=== PATIENT | female | born 1995 | race African-American/Black ===

== ENCOUNTER 2018-06-02 10:21 | Emergency (ER) | payer OTHER | END 2018-06-02 11:21 | disposition home or self-care (01) | LOC: M ED 10:21 | DX: S90.111A Contusion of right great toe without damage to nail, initial encounter (principal); W22.8XXA Striking against or struck by other objects, initial encounter; Y92.59 Other trade areas as the place of occurrence of the external cause; Y99.0 Civilian activity done for income or pay; Z91.013 Allergy to seafood | CPT/HCPCS: 73660 ==

== ENCOUNTER 2018-10-17 05:56 | Emergency (ER) | payer OTHER ==
[~2018-10-17] VITALS: Ht 167.6 cm; Wt 70.9 kg
[2018-10-17] MEDS ORDERED: ACET-683 PO (06:05)
[2018-10-17 08:13] VITALS: BP 118/73
== END 2018-10-17 08:20 | disposition home or self-care (01) ==
LOC: M ED 05:56
DX: G43.909 Migraine, unspecified, not intractable, without status migrainosus (principal); R10.9 Unspecified abdominal pain; Z91.013 Allergy to seafood

== ENCOUNTER 2018-12-15 16:24 | Emergency (ER) | payer OTHER ==
[~2018-12-15] VITALS: Ht 167.6 cm; Wt 75.9 kg
[~2018-12-15 16:24] MED LIST: ACET-683 PO
[2018-12-15] MEDS ORDERED: NS 1,000 ML IV ONE (18:15)
[2018-12-15] MEDS ORDERED: METOCLOPRAMIDE INJ 10MG/2ML VIAL (J2765) IV ONE (18:15)
[2018-12-15 19:05] LABS: BASO # 0.1 10^3/uL (0.0-0.2); BASO % 0.9 % (0.0-1.0); EOS # 0.1 10^3/uL (0.0-0.50); EOS % 1.2 % (0.0-3.0); HEMATOCRIT 38.9 % (36.0-47.0); HEMOGLOBIN 13.1 g/dl (12.0-15.5); LYMPH % 36.6 % (24.0-44.0); MEAN CORPUSCULAR HGB CONC 33.7 g/dl (32.0-36.5); MEAN CORPUSCULAR VOLUME 89.2 fl (80.0-96.0); MONO # 0.6 10^3/uL (0.0-0.8); MONO % 7.4 % (0.0-5.0); NEUTROPHILS # 4.4 10^3/uL (1.8-7.7); NEUTROPHILS % 53.8 % (36.0-66.0); PLATELET COUNT, AUTOMATED 276 10^3/uL (150-450); RED BLOOD COUNT 4.36 10^6/uL (4.00-5.40); WHITE BLOOD COUNT 8.2 10^3/uL (4.0-10.0)
[2018-12-15 19:35] LABS: ALBUMIN 4.2 GM/DL (3.2-5.2); ALT/SGPT 18 U/L (12-78); AMYLASE 57 U/L (25-115); BILIRUBIN,TOTAL 0.6 MG/DL (0.2-1.0); BLOOD UREA NITROGEN 6 MG/DL (7-18); CALCIUM LEVEL 9.1 MG/DL (8.5-10.1); CARBON DIOXIDE LEVEL 26 MEQ/L (21-32); CHLORIDE LEVEL 104 MEQ/L (98-107); CREATININE FOR GFR 0.79 MG/DL (0.55-1.30); GLOMERULAR FILTRATION RATE > 60.0 (>60); GLUCOSE, FASTING 80 MG/DL (70-100); HCG, SERUM QUANTITATIVE < 1.0 MIU/ML; LIPASE 101 U/L (73-393); POTASSIUM SERUM 4.1 MEQ/L (3.5-5.1); SODIUM LEVEL 138 MEQ/L (136-145); TOTAL PROTEIN 8.4 GM/DL (6.4-8.2)
[2018-12-15] MEDS ORDERED: ONDA4TAB6 PO (19:50)
[2018-12-15] MEDS ORDERED: MACR100C43 PO (19:50)
[2018-12-15] MEDS ORDERED: NITROFURANTOIN (MACROBID) 100 MG CAP PO ONE (20:00)
[2018-12-15 20:10] VITALS: BP 129/72
== END 2018-12-15 20:11 | disposition home or self-care (01) ==
LOC: M ED 16:24
DX: N39.0 Urinary tract infection, site not specified (principal); A08.4 Viral intestinal infection, unspecified; R51 Headache; Z91.018 Allergy to other foods
CPT/HCPCS: 80053; 81001; 81025; 82150; 83690; 84702; 85025; 87086; 99284; J2765

== ENCOUNTER → 2019-01-28 | Outpatient (REF) | payer OTHER ==
[~2019-01-28] MED LIST changes: +MACR100C43 PO; +ONDA4TAB6 PO
== END ==
LOC: M SFHCLERA 15:57
PROVIDERS: ATTEND Nurse Practitioner Family
DX: N92.6 Irregular menstruation, unspecified (principal)

== ENCOUNTER → 2019-01-28 | Outpatient (CLI) | payer OTHER ==
--- NOTE | 2019-01-28 16:12 | REP ---
KUB: Two views. History: Left lower quadrant abdomen pain. Findings: Bowel gas pattern is normal. Psoas margins and flank stripes are intact. No mass organomegaly is seen. Impression: Negative abdominal film. Electronically Signed by Isrrael Maradiaga MD 01/28/2019 04:04 P
== END ==
LOC: M LRY 15:41
PROVIDERS: ATTEND Nurse Practitioner Family
DX: R10.32 Left lower quadrant pain (principal)
CPT/HCPCS: 74018; 81002; 81025; 87086; G0463

== ENCOUNTER 2019-03-25 21:52 | Emergency (ER) | payer OTHER ==
[~2019-03-25] VITALS: Ht 165.1 cm; Wt 77.3 kg
[2019-03-25] MEDS ORDERED: PREN1TAB14 (21:59)
[2019-03-25 22:45] LABS: URINE PREG TEST POSITIVE (NEGATIVE)
[2019-03-25] MEDS ORDERED: METOCLOPRAMIDE INJ 10MG/2ML VIAL (J2765) IV ONE (23:30)
[2019-03-25] MEDS ORDERED: NS 1,000 ML IV ONE (23:30)
[2019-03-25 23:46] LABS: BASO % 0.3 % (0.0-1.0); EOS # 0.1 10^3/uL (0.0-0.50); EOS % 1.3 % (0.0-3.0); HEMATOCRIT 34.3 % (36.0-47.0); HEMOGLOBIN 11.5 g/dl (12.0-15.5); LYMPH # 2.5 10^3/uL (1.5-6.5); LYMPH % 28.7 % (24.0-44.0); MEAN CORPUSCULAR HEMOGLOBIN 29.3 pg (27.0-33.0); MEAN CORPUSCULAR HGB CONC 33.5 g/dl (32.0-36.5); MEAN CORPUSCULAR VOLUME 87.5 fl (80.0-96.0); MONO # 0.9 10^3/uL (0.0-0.8); MONO % 10.1 % (0.0-5.0); NEUTROPHILS # 5.2 10^3/uL (1.8-7.7); NEUTROPHILS % 59.4 % (36.0-66.0); PLATELET COUNT, AUTOMATED 266 10^3/uL (150-450); RED BLOOD COUNT 3.92 10^6/uL (4.00-5.40); WHITE BLOOD COUNT 8.7 10^3/uL (4.0-10.0)
[2019-03-26] MEDS ORDERED: REGL10TA6 PO (00:57)
[2019-03-26 01:01] VITALS: BP 114/62
== END 2019-03-26 01:05 | disposition home or self-care (01) ==
LOC: M ED 21:52
DX: O21.9 Vomiting of pregnancy, unspecified (principal); Z91.013 Allergy to seafood; Z3A.01 Less than 8 weeks gestation of pregnancy
CPT/HCPCS: 80047; 81001; 84702; 84703; 85025; 96361; 96374; 99284; J2765

== ENCOUNTER 2020-04-02 16:41 | Emergency (ER) | payer OTHER ==
[~2020-04-02] VITALS: Ht 167.6 cm; Wt 83.6 kg
[~2020-04-02 16:41] MED LIST changes: +PREN1TAB14; +REGL10TA6 PO
[2020-04-02 17:44] LABS: BASO % 0.4 % (0.0-1.0); EOS # 0.1 10^3/uL (0.0-0.5); EOS % 1.8 % (0.0-3.0); HEMATOCRIT 38.7 % (36.0-47.0); HEMOGLOBIN 12.7 g/dl (12.0-15.5); LYMPH # 2.8 10^3/uL (1.5-5.0); LYMPH % 35.6 % (24.0-44.0); MEAN CORPUSCULAR HEMOGLOBIN 27.4 pg (27.0-33.0); MEAN CORPUSCULAR HGB CONC 32.8 g/dl (32.0-36.5); MEAN CORPUSCULAR VOLUME 83.6 fl (80.0-96.0); MONO # 0.7 10^3/uL (0.0-0.8); MONO % 9.1 % (0.0-5.0); NEUTROPHILS # 4.1 10^3/uL (1.5-8.5); NEUTROPHILS % 52.7 % (36.0-66.0); PLATELET COUNT, AUTOMATED 376 10^3/uL (150-450); RED BLOOD COUNT 4.63 10^6/uL (4.00-5.40); WHITE BLOOD COUNT 7.8 10^3/uL (4.0-10.0)
[2020-04-02 18:23] LABS: BLOOD UREA NITROGEN 6 MG/DL (7-18); CALCIUM LEVEL 9.3 MG/DL (8.5-10.1); CARBON DIOXIDE LEVEL 28 MEQ/L (21-32); CHLORIDE LEVEL 104 MEQ/L (98-107); GLOMERULAR FILTRATION RATE > 60.0 (>60); GLUCOSE, FASTING 73 MG/DL (70-100); HCG, SERUM QUANTITATIVE 4697 MIU/ML; POTASSIUM SERUM 3.6 MEQ/L (3.5-5.1); SODIUM LEVEL 137 MEQ/L (136-145)
--- NOTE | 2020-04-02 19:15 | REPVR ---
PROCEDURE INFORMATION: Exam: US First Trimester, Transabdominal and US , Transvaginal Exam date and time: 04/02/2020 6:48 PM Age: 24 years old Clinical indication: Lmp or gestational age (in weeks): 02/21/2020; Antepartum complications; Bleeding; ; Additional info: with vag bleeding and cramping, tender to rlq TECHNIQUE: Imaging protocol: Real-time transabdominal obstetrical ultrasound of the maternal pelvis and a first trimester , less than 14 weeks 0 days, with image documentation. Transvaginal imaging was used for better evaluation of the fetus and adnexa. COMPARISON: No relevant prior studies available. FINDINGS: Gestation: There is a small rounded fluid collection within the endometrium, with mean dimension of 0.58 cm, which could represent a 5 week 1 day gestation. However, no yolk sac or pole visualized to confirm an intrauterine gestation. MATERNAL: Uterus: The uterus measures 8.8 x 4.7 x 5.3 cm and is anteverted. Endometrium is likely thickened, potentially up to 20 mm. Right adnexa: The right ovary is normal in size and echogenicity, measuring 3.2 x 1.6 x 2.0 cm. Arterial and venous flow was observed to the right ovary. Left adnexa: The left ovary appears large in size, but measures 3.0 x 2.5 x 2.6 cm. There is a hypoechoic area within or less likely immediately adjacent to the left ovary measuring 1.6 x 1.3 x 1.5 cm with increased peripheral color flow. This may represent a hemorrhagic corpus luteum cyst. However, if this is extra ovarian, ectopic is not excluded. No yolk sac or pole observed to suggest an ectopic . Arterial and venous flow was observed to the left ovary. Intraperitoneal space: There is minimal free fluid in the posterior cul-de-sac. IMPRESSION: 1. Small rounded fluid collection with the endometrium which could represent a 5 week 1 day gestation. Lack of visualization of the yolk sac or pole is likely related to early gestational age. However, given that no yolk sac or pole are visualized to confirm an intrauterine gestation, ectopic cannot be completely excluded at this time. Suggest correlation with hCG and follow-up hCG and ultrasound. 2. 1.6 cm hypoechoic structure most likely within the left ovary with increased peripheral color flow, most likely a hemorrhagic corpus luteum cyst. However, if this is extra ovarian, ectopic is not excluded. Recommend attention to this on follow-up ultrasound. 3. Suspect endometrial thickening. New lying 4. Normal right ovary. 5. Minimal free fluid in the posterior cul-de-sac. Electronically signed by: Mara Mcbride On 04/02/2020 19:14:55 PM
[2020-04-02 19:40] VITALS: BP 114/69
== END 2020-04-02 19:42 | disposition home or self-care (01) ==
LOC: M ED 16:41
DX: O26.859 Spotting complicating pregnancy, unspecified trimester (principal); Z3A.00 Weeks of gestation of pregnancy not specified; Z91.013 Allergy to seafood

== ENCOUNTER → 2020-04-10 | Outpatient (CLI) | payer OTHER ==
[~2020-04-10] MED LIST changes: +PREN27TA3
--- NOTE | 2020-04-10 11:24 | REP ---
Clinical: Dating and viability. Technique: Transabdominal first trimester obstetrical ultrasound with color Doppler evaluation. Findings: Ultrasound examination demonstrates single live early intrauterine . Gestational sac with yolk sac and pole identified. CRL of 4 mm corresponds to 6 weeks 1 day gestational age with estimated date of delivery 12/03/2020. heart rate equals 136 beats per minute. No subchorionic hemorrhage or obvious abnormalities noted. Impression: Single live early intrauterine measuring at 6 weeks 1 day gestational age. Complete anatomical assessment should be performed at 19-20 weeks. Electronically Signed by Gus Simon MD 04/10/2020 11:16 A
== END ==
LOC: M PLAIMG 10:43
PROVIDERS: ATTEND Obstetrics & Gynecology
DX: Z34.82 Encounter for supervision of other normal pregnancy, second trimester (principal); Z3A.01 Less than 8 weeks gestation of pregnancy

== ENCOUNTER 2020-06-30 12:12 | Emergency (ER) | payer OTHER ==
[~2020-06-30] VITALS: Ht 167.6 cm; Wt 84.0 kg
[~2020-06-30 12:12] MED LIST changes: -PREN27TA3
[2020-06-30] MEDS ORDERED: PREN27TA3 (12:22)
[2020-06-30 13:42] VITALS: BP 126/80
== END 2020-06-30 13:44 | disposition home or self-care (01) ==
LOC: M ED 12:12
DX: M54.5 Low back pain (principal); Z91.013 Allergy to seafood

== ENCOUNTER 2021-05-11 10:05 | Emergency (ER) | payer OTHER ==
[~2021-05-11] VITALS: Ht 167.6 cm; Wt 81.8 kg
[~2021-05-11 10:05] MED LIST changes: +PREN27TA3
[2021-05-11] MEDS ORDERED: birth control PO (10:53)
[2021-05-11] MEDS ORDERED: tumeric (10:54)
[2021-05-11 10:59] LABS: BASO % 0.7 % (0.0-1.0); EOS # 0.4 10^3/uL (0.0-0.5); EOS % 7.2 % (0.0-3.0); HEMATOCRIT 35.3 % (36.0-47.0); HEMOGLOBIN 11.7 g/dl (12.0-15.5); LYMPH # 2.7 10^3/uL (1.5-5.0); LYMPH % 44.8 % (24.0-44.0); MEAN CORPUSCULAR HEMOGLOBIN 27.9 pg (27.0-33.0); MEAN CORPUSCULAR HGB CONC 33.1 g/dl (32.0-36.5); MONO # 0.5 10^3/uL (0.0-0.8); MONO % 7.8 % (2.0-8.0); NEUTROPHILS # 2.4 10^3/uL (1.5-8.5); NEUTROPHILS % 39.3 % (36.0-66.0); PLATELET COUNT, AUTOMATED 296 10^3/uL (150-450)
[2021-05-11 11:23] LABS: ALBUMIN 3.3 GM/DL (3.2-5.2); ALT/SGPT 15 U/L (12-78); BILIRUBIN,DIRECT < 0.1 MG/DL (0.0-0.2); BILIRUBIN,TOTAL 0.2 MG/DL (0.2-1.0); BLOOD UREA NITROGEN 9 MG/DL (7-18); CALCIUM LEVEL 8.5 MG/DL (8.5-10.1); CARBON DIOXIDE LEVEL 25 MEQ/L (21-32); CHLORIDE LEVEL 109 MEQ/L (98-107); CREATININE FOR GFR 0.82 MG/DL (0.55-1.30); GLOMERULAR FILTRATION RATE > 60.0 (>60); GLUCOSE, FASTING 85 MG/DL (70-100); LIPASE 127 U/L (73-393); POTASSIUM SERUM 3.7 MEQ/L (3.5-5.1); SODIUM LEVEL 141 MEQ/L (136-145); TOTAL PROTEIN 7.8 GM/DL (6.4-8.2)
[2021-05-11 11:58] LABS: HCG, SERUM QUANTITATIVE < 1.0 MIU/ML
[2021-05-11 12:24] VITALS: BP 128/70
== END 2021-05-11 12:25 | disposition home or self-care (01) ==
LOC: M ED 10:05
DX: N93.9 Abnormal uterine and vaginal bleeding, unspecified (principal); Z91.013 Allergy to seafood